=== PATIENT | male | born 1980 | race Caucasian/White ===

== ENCOUNTER → 2023-12-06 06:23 | Day surgery (SDC) | payer BC, SELFPAY | LOC: GI 06:23 | PROVIDERS: ATTENDING PHYSICIAN Internal Medicine Gastroenterology | DX: D12.5 Benign neoplasm of sigmoid colon (principal); K57.30 Diverticulosis of large intestine without perforation or abscess without bleeding; K62.1 Rectal polyp; R19.4 Change in bowel habit; K22.89 Other specified disease of esophagus; K44.9 Diaphragmatic hernia without obstruction or gangrene; K31.7 Polyp of stomach and duodenum; K31.89 Other diseases of stomach and duodenum; R10.9 Unspecified abdominal pain | CPT/HCPCS: 43251; 45380; 88305; 88342 ==

== ENCOUNTER → 2023-12-19 14:46 | Outpatient (REF) | payer BC, SELFPAY | LOC: HWRAD 14:46 | PROVIDERS: ATTENDING PHYSICIAN Internal Medicine Gastroenterology; FAMILY PHYSICIAN Family Medicine | DX: R10.13 Epigastric pain (principal) | CPT/HCPCS: 76700 ==

== ENCOUNTER → 2024-04-22 06:53 | Outpatient (REF) | payer BC, SELFPAY | LOC: HWLAB 06:53 | PROVIDERS: ATTENDING PHYSICIAN Physician Assistant Medical | DX: M54.2 Cervicalgia (principal); M62.838 Other muscle spasm | CPT/HCPCS: 72050; 72072; 72110 ==

== ENCOUNTER → 2024-05-02 10:48 | Outpatient (REF) | payer BC, SELFPAY | LOC: HWRAD 10:48 | PROVIDERS: ATTENDING PHYSICIAN Physical Medicine & Rehabilitation; FAMILY PHYSICIAN Physician Assistant Medical | DX: S05.50XA Penetrating wound with foreign body of unspecified eyeball, initial encounter (principal) | CPT/HCPCS: 70030 ==

== ENCOUNTER → 2024-05-06 09:04 | Outpatient (REF) | payer BC, SELFPAY | LOC: EMG 09:04 | PROVIDERS: ATTENDING PHYSICIAN Physical Medicine & Rehabilitation; FAMILY PHYSICIAN Physician Assistant Medical | DX: R20.0 Anesthesia of skin (principal) | CPT/HCPCS: 95886; 95911 ==

== ENCOUNTER 2024-06-04 16:16 | Emergency (ER) | payer BC, SELFPAY ==
[2024-06-04 16:23] VITALS: BP 130/90
--- NOTE | 2024-06-04 17:09 | ED.GENMED ---
History of Present Illness
General
Chief Complaint: Musculo-Skeletal Complaint
Source: patient
Exam Limitations: none
Time Seen by Provider: 06/04/24 16:29
Nursing documentation reviewed up to this point in time: agreed with
History of Present Illness
History of Present Illness:
Patient is a 44-year-old male presenting to the emergency department for evaluation of left foot injury. Patient states he was walking on a job site when his left foot stepped into a hole and he fell forward. He has been able to ambulate although
does report pain in his foot. He denies any numbness/tingling in right foot. No pain in ankle or knee. No pain in his left hip.
Patient denies any head strike or loss of consciousness.
No other injury sustained.
Past History
Past History
ED Past Medical History: None
ED Past Surgical History: None
Social History
Tobacco: Non-smoker
Alcohol: None
Review of Systems
Review of Systems
Allergies reviewed?: Yes
All Other Systems: ROS reviewed and negative except as documented in HPI and ROS
Phy Exam
Physical Exam
Physical Exam:
Vitals: Patient's vital signs are stable. Afebrile
General: Patient is well appearing, no acute distress
Skin: Warm and dry, no rashes or lesions
Head: Normocephalic, atraumatic
Throat: Protecting airway
Neck: Normal ROM, no cervical spine tenderness
Cardiac: Regular rate
Pulm: No apparent respiratory distress
Abdomen: Nondistended
Extremities: Tenderness and edema at base of left great toe without obvious deformity. No erythema, tenderness, or wounds to left plantar foot. No tenderness of left medial or lateral malleolus, calcaneus, or base of left 5th metatarsal. No
tenderness at head of left fibula. Achilles intact. Cap refill WNL. Full ROM in left ankle including dorsiflexion/plantarflexion. Left knee and left hip atraumatic and nontender with full ROM.
Neuro: Grossly intact
Psychiatric: Normal affect.
Course
Orders/Labs/Results
Orders:
Orders
06/04/24 16:24
Foot, Left 3 View [CR Foot - Left Min 3 Views] Urgent
Comment:
Reason For Exam: injury
06/04/24 17:04
boot [Ortho Boot Left- Treatment] ONCE
Short or tall?: Short
Vital Signs
Initial and Last Documented VS:
Initial Vital Signs
Temp Pulse Resp BP Pulse Ox
98 F 100 16 130/90 99
06/04/24 16:23 06/04/24 16:23 06/04/24 16:23 06/04/24 16:23 06/04/24 16:23
Last Documented Vital Signs
Temp Pulse Resp BP Pulse Ox
98 F 100 16 130/90 99
06/04/24 16:23 06/04/24 16:23 06/04/24 16:23 06/04/24 16:23 06/04/24 16:23
MDM/Problems Addressed
Differential Diagnosis Includes:
Not limited to: foot fracture, ankle fracture, Lisfranc injury, Achilles tendon rupture, etc
MDM/Problems Addressed:
44 year-old male presenting with left foot injury sustained during trip and fall earlier today. No associated head strike or loss of consciousness. He is ambulating although with pain. No other injuries sustained. Vitals and physical exam as above.
Patient has tenderness and swelling at base of left first digit. LLE neurovascularly intact. He has excellent range of motion in left ankle and left knee without pain. X-ray of left foot shows fracture of left proximal phalynx. Patient placed in
walking boot. He will require follow up with orthopedics or podiatry. Contact information given. Advised rest, ice, weight-bearing as tolerated, Tylenol/Motrin as needed for pain.
In addition � x-ray does note possible foreign bodies on plantar aspect of left foot. I reevaluated patient and there is no evidence of open wound, erythema, swelling, or tenderness at plantar aspect of left foot. He is unsure what these foreign
bodies could be related to and denies any past injury to left foot. It is possible this is artifact from patient�s sock or x-ray table. Ultimately � no indication for attempted removal today. Advised patient to follow up with ortho/podiatry
regarding this for possible x-ray or further evaluation. Precautions discussed. Patient stable for discharge home.
Chronic conditions affecting care:
N/A
Acute Exacerbation and/or Progression of Chronic Illness:
N/A
*Radiology
Radiology exam reviewed: preliminary read by ED provider (foot xray reviewed by il - fracture of left proximal phalynx w/ small radiopaque foreign bodies at plantar aspect of left foot ) and radiology read reviewed
*Pulse Oximetry
Patient hypoxic: no
*EKG
Interpreted by ED Provider?: NA
*Die Stamper Interpretation
Rate: Die Stamper- N/A
*Critical Care Note
Total Time (30-74mins, 75-104mins- exclusive of procedures): Not Applicable
ED Attending Note
-
Portions of this chart may have been created with voice recognition software.� Occasional wrong word or��sound alike� substitutions may have occurred due to the inherent limitations of voice recognition software.
Discharge Plan
Departure
Patient Disposition: Home (Routine Discharge)
Date of Disposition: 06/04/24
Time of Disposition: 17:16
Patient with high blood pressure during this ER visit?: Yes
Condition: Good
Covid-19: Not Applicable
Discharge Problem:
Foot fracture, left
Instructions: Foot Fracture ED, BLOOD PRESSURE
Prescriptions:
No Action
ondansetron 4 MG tablet,disintegrating
4 mg PO BIDPRN PRN (Reason: nausea) Qty: 14 0RF
Referrals:
Christine Horn DPM [Specified Professional Personl] - Next open appointment
Jeevan Dejesus MD [Active] - Next open appointment
UNKNOWN - PT DOES,NOT KNOW [Unknown Provider] -
Activity Restrictions/Additional Instructions:
RETURN TO THE EMERGENCY DEPARTMENT WITH ANY NUMBNESS/TINGLING IN LEFT FOOT, INTRACTABLE PAIN, INABILITY TO AMBULATE, OR ANY OTHER CONCERNS
- As discussed�your x-ray showed a fracture at the base of your left first toe. You were placed in a walking boot. Continue to ice/elevate your left foot often over the next 2 days. Ambulate as tolerated.
- There also were a few foreign bodies noted at the bottom aspect of your left foot. You should have this further evaluated podiatry. Please return with any signs of infection including fever, redness, or significant swelling
- You will need to follow-up with podiatry/orthopedics for further evaluation/management. I have provided contact information for you above. You should call tomorrow for appointment.
Monitor your symptoms closely and return to the emergency department with any acute worsening/new symptoms or any other concerns
Interventions
Interventions:
*Risk Screen - Suicide Last Done: 06/04/24 16:23
*Neglect/Abuse Screening Last Done: 06/04/24 16:23
*Nursing Disposition Last Done: 06/04/24 17:35
ED-Musculoskeletal Assessment Last Done: 06/04/24 16:58
Discharge Date and Time
Discharge Date/Time: 06/04/24 17:36
Print Language: SOMALI
== END 2024-06-04 17:36 | disposition home or self-care (01) ==
LOC: EMR 16:16
PROVIDERS: EMERGENCY PHYSICIAN Emergency Medicine; FAMILY PHYSICIAN Physician Assistant Medical
DX: S92.412A Displaced fracture of proximal phalanx of left great toe, initial encounter for closed fracture (principal); W19.XXXA Unspecified fall, initial encounter; Y99.0 Civilian activity done for income or pay
CPT/HCPCS: 99283; 73630